=== PATIENT | male | born 1965 ===

== ENCOUNTER 2017-04-20 03:13 | Day surgery (SDC) | payer OTHER ==
[~2017-04-20] VITALS: Ht 188 cm; Wt 125.2 kg
[2017-04-20] VITALS (9 sets, daily range): BP systolic 117–129; BP diastolic 70–90
[~2017-04-20 03:13] MED LIST: AMPH20TA18 PO; FAMOTIDINE 20 MG TAB PO ONE; INDO-1 PO; LIDOCAINE/SOD BICARB 8.4% SYR ID ONE; MIDAZOLAM 2 MG/2 ML VIAL IVP PRN; NORMOSOL R SOLN(*) 1000 ML BAG 1,000 ML IV PRN; ceFAZolin(*) 2GM/D5W 50ML 50 ML IVPB ONE
[2017-04-20] MEDS ORDERED: MIDAZOLAM 2 MG/2 ML VIAL IVP ONE (06:15)
[2017-04-20] MEDS ORDERED: NORMOSOL R SOLN(*) 1000 ML BAG 1,000 ML IV PRN (06:15)
[2017-04-20] MEDS ORDERED: FAMOTIDINE 20 MG TAB PO ONE (06:15)
[2017-04-20] MEDS ORDERED: ceFAZolin(*) 2GM/D5W 50ML 50 ML IVPB ONE (06:15)
[2017-04-20] MEDS ORDERED: LIDOCAINE/SOD BICARB 8.4% SYR ID ONE (06:15)
[2017-04-20] MEDS ORDERED: BUPIV/EPI 0.25% 1:200,000 50ML INFIL ONE (06:51)
[2017-04-20] MEDS ORDERED: ONDANSETRON 4 MG/2 ML VIAL ONE (07:05)
[2017-04-20] MEDS ORDERED: PROPOFOL EMUL(*) 10MG/ML 20 ML 20 ML ONE (07:05)
[2017-04-20] MEDS ORDERED: ROPIVACAINE 0.5% 20 ML VIAL ONE (07:05)
[2017-04-20] MEDS ORDERED: DEXAMETHASONE SOD PHOS 10MG/ML ONE (07:05)
[2017-04-20] MEDS ORDERED: LIDOCAINE MPF 1% 5 ML VIAL ONE (07:05)
[2017-04-20] MEDS ORDERED: MIDAZOLAM 2 MG/2 ML VIAL ONE (07:07)
[2017-04-20] MEDS ORDERED: fentaNYL CITR 100 MCG/2 ML AMP ONE (07:07)
[2017-04-20] MEDS ORDERED: KETAMINE HCL 500 MG/10 ML VIAL ONE (07:26)
[2017-04-20] MEDS ORDERED: KETOROLAC 30 MG/ML VIAL ONE (09:08)
[2017-04-20] MEDS ORDERED: LACTATED RINGER 3000 ML BAG IR ONE (09:30)
[2017-04-20] MEDS ORDERED: PER PO (10:07)
[2017-04-20] MEDS ORDERED: CEPH500T7 PO (10:08)
--- NOTE | 2017-04-21 15:38 | OPERATIVE REPORT 1 ---
EVENT DATE: April 20, 2017 SURGEON: Ramin Ling MD ANESTHESIOLOGIST: Livan Hayden MD ANESTHESIA: LMA with interscalene block. DESIGN ARCHITECT: REYES Lundberg PREOPERATIVE DIAGNOSES 1. Right shoulder rotator cuff tear. 2. Superior labral anterior-posterior tear. 3. Degenerative labral tears. 4. Impingement. POSTOPERATIVE DIAGNOSES 1. Right shoulder rotator cuff tear. 2. Superior labral anterior-posterior tear. 3. Degenerative labral tears. 4. Impingement. PROCEDURES PERFORMED 1. Right shoulder arthroscopy with rotator cuff repair. 2. Arthroscopic biceps tenodesis. 3. Subacromial decompression acromioplasty. 4. Extensive debridement. ESTIMATED BLOOD LOSS Minimal. COMPLICATIONS None. DRAINS None. SPECIMENS None. IMPLANTS USED [employer]on and Fisgo 4.5 Healicoil anchor times three and a [employer] Footprint Ultra 5.5 anchor times two. HISTORY Mr. Tatum is a 51-year-old male with a longstanding history of right shoulder pain. He was seen and evaluated in the [facility] and found to have a tear of the rotator cuff, a SLAP lesion, degenerative labral tears, and impingement. Following discussion of risks, benefits, alternatives, and possible complications of surgical and nonsurgical intervention, he wished to proceed with surgical intervention. DESCRIPTION OF PROCEDURE The patient was brought to the operating room and placed on the operating table in the supine position. A proper timeout was performed, identifying patient, limb of surgery, and surgical procedure. The patient was given preoperative IV antibiotics and underwent interscalene block, followed by LMA anesthesia. The patient was then placed in the left lateral decubitus position. A well-padded axillary roll was placed. All lower extremities were well padded. The right upper extremity was prepped and draped in the sterile orthopedic fashion and placed in the arm suspension device. The shoulder was insufflated with 40 mL sterile saline. There was positive delta bursal inflation. The posterior portal was established. The camera was placed intra-articularly. The anterior portal was established, and a 5 mm cannula was placed in the rotator cuff interval. There was extensive tearing of the anterior labrum, and the biceps anchor itself was unstable. There was a large SLAP lesion present. The intra- articular portion of the biceps was actually in reasonable condition. The posterior superior labrum demonstrated tearing. The posterior inferior labrum demonstrated some mild fraying. The axillary pouch demonstrated some reactive synovitis, but no loose bodies. The humeral head and glenoid were free of major articular cartilage defects. The glenoid did have some grade I to II change diffusely. The subscapularis was intact. There was extensive tearing of the rotator cuff with full-thickness tears seen. The anterior labrum inferiorly demonstrated tearing as well. Once complete, a 4 mm shaver was placed intra-articularly. The anterior labrum and glenoid were debrided with the shaver until stable tissues were obtained. The superior limb was debrided. The undersurface of the rotator cuff was debrided. The surface was utilized for cauterization of some of the reactive synovitis. The camera was then placed anteriorly. Identical findings were established. The posterior labrum was debrided with a shaver until stable tissue was obtained. The subscapularis recess demonstrated no tearing. Once complete, the camera was placed in the subacromial space. A 5.5 threaded anterior cannula and 8.5 lateral cannula were placed. The subacromial bursa was extensive, and it was debrided with the shaver and surface for cauterization. Full-thickness tear of the rotator cuff was debrided with the shaver. The anatomic footprint was prepped with a 5 mm auger paul to remove soft tissue, and then a 1.5 mm drill bit was utilized for Crimson Duvet stimulation of the footprint. Our attention was drawn to the biceps tendon. We drilled in the [id number] position anteriorly and at the beginning of the bicipital groove. The floor of the bicipital groove was debrided with the shaver and paul to stimulate bleeding. A 4.5 anchor was placed with excellent purchase. Then utilizing the Scorpion suture passer, all four limbs were passed through the biceps tendon. Two of them were done in the luggage tag technique and a lori technique. Once this was complete, these were tied arthroscopically, performing an arthroscopic biceps tenodesis. The bicipital stumps intra-articularly and at the tenodesis site were then transected, and an intra-articular segment of that tendon was removed without any difficulty. Our attention was then drawn to the rotator cuff tear. An anteromedial 4.5 Healicoil anchor was placed in the footprint. All four suture limbs were passed utilizing the Scorpion suture passer through the rotator cuff. The second anchor was placed posteromedially, and identical findings were established. These were then tied orthoscopically, reapproximating the rotator cuff back down to the anatomic footprint utilizing four sutures in suture bridge technique. A posterolateral lateral row anchor was placed, and all four suture limbs were tensioned, reapproximating the rotator cuff back down to the footprint. These were locked in place and trimmed. A second anchor was placed anterolateral, and an identical procedure was performed with the remaining four sutures. Once complete, the repair was felt to be stable when it was probed. The CA ligament was then peeled off the undersurface of the acromion. Subacromial decompression and acromioplasty were performed in 90/ 90 technique without any difficulty. Once complete, all instrumentation was removed. The shoulder was drained. Portal sites were closed with 4-0 Monocryl. A standard postoperative dressing, an Iceman, and an UltraSling were applied. Mr. Tatum tolerated the procedure well. He was extubated and transferred to the PACU in stable condition. He will be placed on my type 1 rotator cuff repair protocol and biceps tenodesis protocol. He will follow up with me in seven to 14 days. TRAV
== END 2017-04-20 11:14 | disposition home or self-care (01) ==
LOC: OR 03:13
PROVIDERS: ATTEND Orthopaedic Surgery
DX: M75.101 Unspecified rotator cuff tear or rupture of right shoulder, not specified as traumatic (principal); M75.41 Impingement syndrome of right shoulder
CPT/HCPCS: 29826; 29827; 94667; C1713; J1100; J1885; J2001; J2250; J2405; J2704; J2795; J3010; J3490; J0690